=== PATIENT | female | born 1945 | race Caucasian/White ===

== ENCOUNTER 2024-10-13 09:13 | Outpatient (REF) | payer MEDICARE, OTHER, SELFPAY ==
--- OUTSIDE RECORDS SUMMARY | 2024-10-13 09:50 | XMS_ITS | Clinical Summary ---
Author Organization 175 [facility] Address [address] [place] [address] Phone Care Team Providers Care Compugraph Operator Name Role Phone Tano Gillette Primary Care Provider [phone] Allergies Active Allergy Reactions Criticality Noted Date Comments Amoxicillin-Pot Clavulanate Diarrhea 01/22/20 18 Metoprolol Other 06/07/2018 Depression worsened Nitrofurantoin Monohyd/M-Cryst Medium 04/11/2014 Other Reaction(s): Numbness, tingling or swelling of the lips, tongue or mouth Nystatin Other 09/25/2021 nightmares Rsv Vaccine, Pref, Mrna-Pf 5 Hypersensitivy reaction Sulfa (Sulfonamide Antibiotics) 09/12/2005 Other Reaction(s): Hives/Urticaria Medications busPIRone (BUSPAR) 5 mg tablet TAKE 1 TABLET BY MOUTH THREE TIMES A DAY Active mv-min/FA/vit K/lutein/zeaxan t (PRESERVISION AREDS 2 PLUS MV ORAL) Take 1 capsule by mouth 2 (two) times a day. 08/21/19 23 Active calcium carbonate (Tums Ultra) 1,000 mg (400 mg elemental calcium) chewable tablet Chew. Acti ve cholecalciferol (VITAMIN D-3) 25 mcg (1,000 unit) tablet Take 1 tablet (1,000 Units total) by mouth 1 (one) time each day. 02/20/20 22 Active simethicone (MYLICON,GAS-X) 180 mg capsule TAKE 1 CAPSULE 4 TIMES DAILY NEEDED. 03/12/20 19 Active estradioL (ESTRACE) 0.01 % (0.1 mg/gram) vaginal cream Place 1 g vaginally. 01/21/20 17 Active LORazepam (ATIVAN) 0.5 mg tablet 1 po qd prn anxiety or insomnia 05/30/20 21 Active nortriptyline (PAMELOR) 25 mg capsule TAKE 1 CAPSULE BY MOUTH EVERY NIGHT AT BEDTIME WITH 75 MG CAPSULE FOR TOTAL DOSE = 100 MG 08/10/19 24 Active nortriptyline (PAMELOR) 75 mg capsule Take 1 capsule by mouth at bedtime. 08/20/19 22 Active levothyroxine (SYNTHROID, LEVOTHROID) 112 mcg tablet TAKE 1 TABLET BY MOUTH EVERY DAY 90 tablet 3 06/27/19 25 Active amLODIPine (NORVASC) 5 mg tablet Take 0.5 tablets (2.5 mg total) by mouth. Active diclofenac (VOLTAREN) 1 % topical gel Apply 4 g topically 4 (four) times a day. 1440 g 3 09/01/19 25 Active simvastatin (ZOCOR) 20 mg tablet Take 1 tablet (20 mg total) by mouth at bedtime. at bedtime. 90 tablet 3 09/01/19 25 Active amLODIPine (NORVASC) 2.5 mg tablet Take 1 tablet (2.5 mg total) by mouth 1 (one) time each day. 90 each 3 09/01/19 25 Active pantoprazole (PROTONIX) 40 mg EC tabletIndicatio ns:Hiatal hernia with GERD without esophagitis TAKE 1 TABLET BY MOUTH 1 TIME EACH DAY. 90 tablet 1 09/29/19 25 Active pantoprazole (PROTONIX) 40 mg EC tabletIndicatio ns:Hiatal hernia with GERD without esophagitis Take 1 tablet (40 mg total) by mouth 1 (one) time each day. 30 tablet 3 07/07/19 25 025 Discontinued Active Problems Problem Noted Date Diagnosed Date Abdominal aortic atherosclerosis (CMS/HCC V24) 0 08/22/2024 Bilateral carotid artery stenosis 03/28/2024 Macular degeneration 08/20/2022 CKD (chronic kidney disease) stage 3, GFR 30-59 ml/min ([facility] V24, [facility] V28) 07/08/2022 Anxiety and depression 02/20/2022 Palpitations 02/20/2022 Thrush 02/20/2022 PVC's (premature ventricular contractions) 10/21 Dilation of thoracic aorta ([facility] V24) 022 Porokeratosis 09/19/2020 Overview (05/17/2024): Porokeratosis 09/26 forehead Primary osteoarthritis of left knee 01/10/2019 Primary osteoarthritis of right knee 01/10/2019 Esophageal reflux 01/21/2018 Panic disorder 11/04/2016 Hiatal hernia 03/21/2016 Schatzki's ring 03/21/2016 Generalized anxiety disorder 02/29/2016 Major depressive disorder, r ecurrent severe without psychotic features ([facility] V24, [facility] V28) 02/29/2016 Bunion of great toe of right foot 04/11/2014 Overview (05/17/2024): No surgery as of 2013 Osteopenia 05/07/2012 Rectocele, female 04/11/2011 Benign neoplasm of colon 08/23/2007 Overview (05/17/2024): Sessile, flat, hyperplastic polyp, hepatic flexure, biopsied but not removed completely 11/29/2001. CN + bx 10/15/2007:Hyperplastic polyp. Colonoscopy and biopsy 2012, serrated adenoma. 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 V24) 09/12/2005 Overview (05/17/2024): IMO update Hyperlipidemia 09/09/2005 Hypothyroidism 09/09/2005 Encounters Date Type Department Care Team Description 10/06/2024 Nurse Triage Adult Medicine [address] [phone] Tano Gillette PA 10/04/2024 8:50 AM EDT Office Visit Gastroenterology - [facility] [address] [facility] [address] [place] [address] Marii Mccrary PA Hiatal hernia with GERD (Primary Dx); History of colon polyps 09/07/2024 Telephone [facility] SCHEDULING [address] [place] [address] Marii Mccrary PA provider call back 09/05/2024 7:55 AM EDT - 09/05/2024 11:59 PM EDT Hospital Encounter [facility] Xray [address] [place] [address] Hiatal hernia with GERD without esophagitis Discharge Disposition: Home or Self Care 08/31/2024 10:30 AM EDT Office Visit Adult Medicine [address] [phone] Tano Gillette PA Essential hypertension, benign (Primary Dx); Bilateral carotid artery stenosis; Sensorineural hearing loss (SNHL) of both ears; Anxiety and depression; Stage 3 chronic kidney disease, unspecified whether stage 3a or 3b CKD (CMS/HCC V24, CMS/HCC V28); Dilation of thoracic aorta (CMS/HCC V24); Hypothyroidism, unspecified type; Osteopenia, unspecified location; Other hyperlipidemia; Gastroesophageal reflux disease without esophagitis; Neutropenia, unspecified type ([facility] V24) 08/23/2024 Telephone Adult Medicine [address] [phone] Tano Gillette PA orders 08/22/2024 9:00 AM EDT Consult Vascular Surgery - [facility] [address] [place] [address] Rigoberto Lundberg MD Carotid stenosis (Primary Dx); Abdominal aortic atherosclerosis (CMS/HCC V24) from Last 3 Months Immunizations Name Administration Dates Next Due Influenza Quadravalent, MDCK , 0.5ml, preservative free (Flucelvax) 6mo and older 03/12/2019 Influenza trivalent, 0.5mL ( Fluad) 65yo and older 02/25/2023,02/13/2022,02/12/2021,02/13,02/21/2018,02/22/2017,02/24/2016 ,02/18/2015 Influenza trivalent, with pr eservative (Fluzone; Afluria) 6mo and older 03/12/2014,02/15/2013,02/26/2012,03/02,03/14/2010,02/25/2009,04/14/2005 Influenza, Unspecified 02/25/2024,2017,02/22/2017,02/23,02/18/2015 Pfizer Covid-19 Bivalent, Or iginal + Ba.1 (Non-[employer] Bivalent) 04/21/2022 Pneumococcal conjugate 13 va lent (Prevnar 13, PCV13) 2mo and older 10/16/2014 Pneumococcal polysaccharide 23 valent (Pneumovax 23) 2yo and older 09/26/2013,03/23/2007 Respiratory syncytial virus (RSV), unspecified 06/23/2023 Td Tetanus diptheria (Tdvax) 7yo and older 09/12/2005 Tdap Tetanus diptheria acell ular pertussis (Boostrix; Adacel) 7yo and older 04/21/2016 Zoster Live 11/27/2009 Zoster recombinant (Shingrix ) 19yo and older 07/25/2024 Surgical History Surgery Date Site/Laterality Comments CATARACT EXTRACTION PROCEDURE: HISTORICAL CATARACT REMOVAL BLADDER SUSPENSION PROCEDURE: HISTORICAL BLADDER SUSPENSION MOLE REMOVAL PROCEDURE: HISTORICAL MOLE (REMOVAL OF); COMMENT: Dysplastic (Gildardo's) nevus LLQ abdominal wall TUBAL LIGATION PROCEDURE: HISTORICAL TUBAL LIGATION TONSILLECTOMY PROCEDURE: HISTORICAL TONSILLECTOMY COLONOSCOPY 11/29/2001 PROCEDURE: HISTORICAL COLONOSCOPY; COMMENT: sessile hyperplastic polyp hepatic flexure. COLONOSCOPY 10/15/2007 PROCEDURE: HISTORICAL COLONOSCOPY; COMMENT: sessile flat polyp hepatic flexure: Hyperplastic polyp COLONOSCOPY 12/20/2012 PROCEDURE: HISTORICAL COLONOSCOPY; COMMENT: polyp bx: serrated adenoma. OTHER SURGICAL HISTORY PROCEDURE: HISTORY OTHER; COMMENT: cystocele rectocele 2014 HYSTERECTOMY PROCEDURE: HISTORICAL HYSTERECTOMY; COMMENT: and oophor dr ceron 2016 UPPER GASTROINTESTINAL ENDOSCOPY 03/14/2016 PROCEDURE: DC UPPER GI ENDOSCOPY PERFORMED; COMMENT: [facility]; Funez; small HH; esophageal bx: microscopic inflammation consistent with GERD. COLONOSCOPY 03/14/2016 PROCEDURE: HISTORICAL COLONOSCOPY; COMMENT: [facility]; Funez; small SSA in the hepatic flexure. OTHER SURGICAL HISTORY 2013 PROCEDURE: DC COLPOPEXY VAGINAL EXTRAPERITONEAL APPROACH; COMMENT: A/P UPPER GASTROINTESTINAL ENDOSCOPY 10/11/2013 PROCEDURE: DC UPPER GI ENDOSCOPY PERFORMED; COMMENT: normal OTHER SURGICAL HISTORY 04/09/2022 PROCEDURE: UPPER GI ENDOSCOPY, REMOVE LESION; COMMENT: muslu -small hiatal hernia otherwise normal Medical History Medical History Date Comments Benign neoplasm of colon 08/23/2007 DX:Gerardo gn neoplasm of colon; COMMENT: Sessile, flat, hyperplastic polyp, hepatic flexure, biopsied but not removed completely 11/29/2001. CN + bx 10/15/2007:Hyperplastic polyp. Colonoscopy and biopsy 2012, serrated adenoma. 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/03/2006 DX:Felty's syndrome (HCC) Esophageal reflux 01/21/2018 DX:Esophageal reflux Essential hypertension, benign 06/26/2006 D X:Essential hypertension, benign Family history of melanoma 11/09/2015 DX:Fa ihsan history of melanoma; COMMENT: Family history of melanoma daughter Generalized anxiety disorder 02/29/2016 DX: Generalized anxiety disorder H/O difficult intubation 10/16/2014 DX:H/O difficult intubation; COMMENT: Ant larynx mpoor neck mobiltiy Small mouth Protruding teeth Hiatal hernia 03/21/2016 DX:Hiatal hernia History of dysplastic nevus 10/23/2006 DX:H istory of dysplastic nevus; COMMENT: Dysplastic (Gildardo's) nevus LLQ abdominal wall Hyperlipidemia 09/09/2005 DX:Hyperlipidemi a Hypothyroidism 09/09/2005 DX:Hypothyroidis m Major depressive disorder, r ecurrent severe without psychotic features (CMS/HCC V24, CMS/HCC V28) 02/29/2016 DX:Major depressive disorde r, recurrent severe without psychotic features (HCC) Osteopenia 05/07/2012 DX:Osteopenia Panic disorder 11/04/2016 DX:Panic disorde r Rectocele, female 04/11/2011 DX:Rectocele, female Neutropenia (CMS/HCC V24) 09/12/2005 DX:Clemente tropenia ([facility]); COMMENT: IMO update Charo's ring 03/21/2016 DX:Charo's ri ng Actinic keratosis, hx of DX:Acti erna keratosis, hx of Family History Medical History Relation Name Comments Breast cancer Aunt 1 Maternal 57 maternal Uterine cancer Aunt 2 50's paternal ?can cer Melanoma Daughter Survivor Other: Other Father bypass surgery times 2 Colon cancer Mother 74 dx age 74, thyr oid disorder Thyroid disease Sister 1 Thyroid disease Sister 2 Thyroid disease Sister 3 Colon cancer Uncle 60's paternal Relation Name Status Comments Aunt 1 Maternal 57 Aunt 2 50's Daughter Father bypass surgery DM Mother 74 (Age 90) colon canc er dementia Sister 1 Alive healthy/healthy /healthy htn thyroid Sister 2 Alive htn thyroid Sister 3 Alive thyroid Uncle 60's Social History Tobacco Use Types Packs/Day Years Used Date Smoking Tobacco: Former Cigarettes Q uit: 06/08/1968 Smokeless Tobacco: Never Tobacco Cessation:Counseling Given: Not Answered Alcohol Use Standard Drinks/Week Comments Yes 0 (1 standard drink = 0.6 oz pur e alcohol) Comments Unknown Sex and Gender Information Value Date Recorded Sex Assigned at Female 07/07/2024 1:52 PM EST Legal Sex Female 9:28 AM EST Gender Identity Female 07/07/2024 1:52 PM EST Sexual Orientation Straight 07/07/2024 1: 52 PM EST Obstetrics History Last Filed Vital Signs Vital Sign Reading Time Taken Comments Blood Pressure 150/96 10/04/2024 8:53 AM EDT Pulse 72 10/04/2024 8:53 AM EDT Temperature 36.1 ??C (97 ??F) 08/31/2024 10:10 AM EDT Respiratory Rate 12 08/31/2024 10:10 AM EDT Oxygen Saturation 92% 10/04/2024 8:53 AM EDT Inhaled Oxygen Concentration - - Weight 76.2 kg (168 lb) 10/04/2024 8:53 AM EDT Height 160 cm (5' 3 ) 10/04/2024 8:53 AM EDT Body Mass Index 29.76 10/04/2024 8:53 AM EDT Plan of Treatment Upcoming Encounters Date Type Department Care Team (Late st Contact Info) Description 11/15/2024 8:30 AM EDT Appointment [facility] Endoscopy [address] [place] [phone] Carli Santo MD 175 [facility] [address] [place] [address] 11/17/2024 11:00 AM EDT Ancillary Procedure [facility] [address] [facility] [address] [place] [phone] 01/03/2025 9:10 AM EDT Office Visit Gastroenterology - [facility] 175 [facility] [address] [place] [phone] Marii Mccrary PA 175 [facility] [address] [place] [address] 03/07/2025 8:45 AM EDT Office Visit Adult Medicine East - [address] [phone] Tano Gillette PA [address] [place], [place] 03/16/2025 8:00 AM EDT Appointment Radiology Department - [address] [phone] Health Maintenance Due Date Last Done Comments RSV Immunization Adult Patients (1 - 1-dose 75+ series) 10/02/2019 06/23/2023 Social Influencers of Health Screening 05/17/2022 Medicare Annual Wellness Visit 02/21/2024 02/20/2023 Falls Risk Assessment 08/23/2024 08/24/2023 Zoster Vaccines (2 of 2) 09/19/2024 07/25/2024, 06/2 07/2009 COVID-19 Vaccine (7 - Pfizer risk season) 2024 04/20/2024, 04/14/2023, 11/07/2021, Additional history exists Depression Screening 03/03/2025 03/03/2024 Hypertension/CHF/CAD Annual BMP Blood Test 08/25/2025 08/25/2024, 07/07/2023 DTaP,Tdap,and Td Vaccines (3 - Td or Tdap) 04/21/2026 04/21/2016, 09/12/2005 Colorectal Cancer Screening: Colonoscopy 04/09/2027 04/09/2022 Cholesterol Screening (Lipid Panel) 08/25/2029 08/25/2024, 07/07/2023 Osteoporosis Screening (Bone Density Screening) 05/07/2033 05/07/2023, 02/13/2021, 06/10/2017 Pneumococcal Vaccine: 50+ Years Completed 10/16/2014, 09/26/2013, 03/23/2007 RSV Immunization Patients Under 20 months Aged Out 06/23/2023 No longer eligible based on patient's age to complete this topic Influenza Vaccine Completed 02/25/2024, , 02/13/2022, Additional history exists HIB Vaccines Aged Out No longer eligi ble based on patient's age to complete this topic HPV Vaccines Aged Out No longer eligi ble based on patient's age to complete this topic Hepatitis A Vaccines Aged Out No long er eligible based on patient's age to complete this topic Hepatitis B Vaccines Aged Out No long er eligible based on patient's age to complete this topic IPV Vaccines Aged Out No longer eligi ble based on patient's age to complete this topic MMR Vaccines Aged Out No longer eligi ble based on patient's age to complete this topic Meningococcal ACWY Vaccine Aged Out N o longer eligible based on patient's age to complete this topic Meningococcal B Vaccine Aged Out No l onger eligible based on patient's age to complete this topic Varicella Vaccines Aged Out No longer eligible based on patient's age to complete this topic Procedures Procedure Name Priority Date/Time Associated Diagnosis Comments XR UGI W AIR CONTRAST Routine 09/05/2024 8:51 AM EDT Hiatal hernia with GERD without esophagitis CBC WITH AUTO DIFFERENTIAL Routine 08/25/2024 7:36 AM EDT Hypothyroidism, unspecified type Essential hypertension, benign Other hyperlipidemia LIPID PANEL WITH REFLEX TO DIRECT LDL Routine 08/25/2024 7:36 AM EDT Hypothyroidism, unspecified type Essential hypertension, benign Other hyperlipidemia COMPREHENSIVE METABOLIC PANEL Routine 08/25/2024 7:36 AM EDT Hypothyroidism, unspecified type Essential hypertension, benign Other hyperlipidemia CBC AND DIFFERENTIAL Routine 08/25/2024 7:36 AM EDT Hypothyroidism, unspecified type Essential hypertension, benign Other hyperlipidemia THYROID STIMULATING HORMONE WITH REFLEX TO FREE T4 AND FREE T3 Routine 08/25/2024 7:36 AM EDT Hypothyroidism, unspecified type Essential hypertension, benign Other hyperlipidemia DEPRESSION SCREENING Routine 03/03/2024 FALLS RISK ASSESSMENT Routine 08/24/2023 DXA BONE DENSITY STUDY 1+ SITS AXIAL SKEL Routine 05/07/2023 10:19 AM EST Chronic kidney disease, stage 3 unspecified (CMS/HCC V24, CMS/HCC V28) Anxiety disorder, unspecified Depression, unspecified Ventricular premature depolarization Thoracic aortic ectasia (CMS/HCC V24) Gastro-esophageal reflux disease without esophagitis Panic disorder (episodic paroxysmal anxiety) Family history of malignant neoplasm of other organs or systems Esophageal obstruction COLONOSCOPY Routine 04/09/2022 from Last 3 Months or Most Recently Relevant to Health Maintenance Results * XR UGI w Air Contrast (09/05/2024 8:51 AM EDT) Anatomical Region Laterality Modality Body Radiographic Ammy ging 09/05/2024 10:1 4 AM EDT Impressions 09/05/2024 10:31 AM EDT 1. Moderate esophageal dysmotility. 2. Small, sliding, axial hiatal hernia with moderate amounts of spontaneous gastroesophageal reflux visualized. 3. Multiple, small, round to oval filling defects noted along the gastric mucosa, likely representing hyperplastic polyps, however overlapping gastric erosions or ulcerations should also be considered as described above. Recommend direct visualization with endoscopy. -------- FINAL REPORT -------- Dictated By: GiulianaBaldoMalgorzata Dictated Date: 09/05/2024 10:14 ET Assigned Physician: Rufus Hinds Reviewed and Electronically Signed By: Rufus Hinds Signed Date: 09/05/2024 10:31 ET Workstation ID: [id number] Transcribed By: Self Edit Transcribed Date: 09/05/2024 10:23 ET Resident/PA/GROUND INTELLIGENCE OFFICER: Malgorzata Giordano Narrative 09/05/2024 10:31 AM EDT FINDINGS: Double contrast UGI performed. COMPARISON: No prior upper GI imaging. HISTORY: Patient is a 78-year-old female with history of worsening GERD, known hiatal hernia. ELECTROLESS PLATER radiographs: Subgrade Roller Operator AP radiograph of the abdomen obtained. Bowel gas pattern is nonobstructive. Visualized lung bases appear clear. There is moderate S-shaped scoliosis of the thoracolumbar spine. Moderate bony degenerative changes. Phleboliths are seen in the pelvis. FINDINGS: Effervescent crystals were administered orally. Thick and thin barium was then administered orally under fluoroscopic control. Esophagus: There is moderate esophageal dysmotility as demonstrated by slow transit of contrast down the esophagus and tertiary contractions visualized. Normal distensibility and mucosal pattern. There is no evidence of obstruction. There is a small, sliding, axial hiatal hernia. ?? Stomach: Normal distensibility and motility. Prompt passage of contrast from the stomach into the duodenal bulb and sweep. No gastric mass or ulceration. There are multiple, small, round to oval filling defects noted along the gastric mucosa. These are likely representing hyperplastic polyps, however several demonstrate a bull's-eye appearance which raises suspicion for possible overlapping gastric erosions or ulcerations. Visualization of proximal small bowel is within normal limits. ?? Gastroesophageal reflux: Moderate amounts of spontaneous gastroesophageal reflux visualized DAP: 554.4 uGym^2 Procedure Note Rufus Hinds MD - 09/05/2024 FINDINGS: Double contrast UGI performed. COMPARISON: No prior upper GI imaging. HISTORY: Patient is a 78-year-old female with history of worsening GERD,known hiatal hernia. ELECTROLESS PLATER radiographs: Subgrade Roller Operator AP radiograph of the abdomen obtained. Bowel gaspattern is nonobstructive. Visualized lung bases appear clear. There ismoderate S-shaped scoliosis of the thoracolumbar spine. Moderate bonydegenerative changes. Phleboliths are seen in the pelvis. FINDINGS: Effervescent crystals were administered orally. Thick and thinbarium was then administered orally under fluoroscopic control. Esophagus: There is moderate esophageal dysmotility as demonstrated byslow transit of contrast down the esophagus and tertiary contractionsvisualized. Normal distensibility and mucosal pattern. There is noevidence of obstruction. There is a small, sliding, axial hiatal hernia. Stomach: Normal distensibility and motility. Prompt passage of contrastfrom the stomach into the duodenal bulb and sweep. No gastric mass orulceration. There are multiple, small, round to oval filling defects notedalong the gastric mucosa. These are likely representing hyperplasticpolyps, however several demonstrate a bull's-eye appearance which raisessuspicion for possible overlapping gastric erosions or ulcerations.Visualization of proximal small bowel is within normal limits. Gastroesophageal reflux: Moderate amounts of spontaneous gastroesophagealreflux visualized DAP: 554.4 uGym^2 IMPRESSION: 1. Moderate esophageal dysmotility. 2. Small, sliding, axial hiatal hernia with moderate amounts ofspontaneous gastroesophageal reflux visualized. 3. Multiple, small, round to oval filling defects noted along the gastricmucosa, likely representing hyperplastic polyps, however overlappinggastric erosions or ulcerations should also be considered as describedabove. Recommend direct visualization with endoscopy. -------- FINAL REPORT -------- Dictated By: Malgorzata Giordano Dictated Date: 09/05/2024 10:14 ET Assigned Physician: Rufus Hinds Reviewed and Electronically Signed By: Rufus Hinds Signed Date: 09/05/2024 10:31 ET Workstation ID: [id number] Transcribed By: Self Edit Transcribed Date: 09/05/2024 10:23 ET Resident/PA/GROUND INTELLIGENCE OFFICER: Malgorzata Giordano Marii TIRADO IMG FLUOROSCOPY PROCEDURES Fi nal Result * Thyroid stimulating hormone with reflex to free t4 and free t3 (08/25/2024 7:36 AM EDT) TSH 3.46 0.40 - 4.00 mcIU/mL LAB CHEMISTRY METHOD 08/25/2024 11:25 AM EDT [facility] Blood Venous blood specimen / Unknown Venipuncture / Unknown 08/25/2024 7:36 AM EDT 08/25/2024 7:36 AM EDT Tano TIRADO LAB BLOOD ORDERABLES Lara l Result [facility] [address] [place] [address], [place] [phone] * (ABNORMAL) Lipid panel with reflex to direct LDL (08/25/2024 7:36 AM EDT) Cholesterol 202(H) 0 - 200 mg/dL LAB CHEMISTRY METHOD 08/25/2024 11:19 AM EDT [facility] Triglycerides 78 0 - 150 mg/dL LAB CHEMISTRY METHOD 08/25/2024 11:19 AM EDT [facility] HDL 99 >=40 mg/dL LAB CHEMISTRY METHOD 08/25/2024 11:19 AM T [facility] LDL Calculated 87 0 - 100 mg/dL LAB CHEMISTRY METHOD 08/25/2024 11:19 AM [facility] VLDL Cholesterol Roberto 15.6 mg/dL LAB CHEMISTRY METHOD 08/25/2024 11:19 AM EDT [facility] Non HDL Chol. (LDL+VLDL) 103 <145 mg/dL LAB CHEMISTRY METHOD 08/25/2024 11:19 AM [facility] Chol/HDL Ratio 2.0 0.0 - 4.4 LAB CHEMISTRY METHOD 08/25/2024 11:19 AM [facility] Blood Venous blood specimen / Unknown Venipuncture / Unknown 08/25/2024 7:36 AM EDT 08/25/2024 7:36 AM EDT Tano TIRADO LAB BLOOD ORDERABLES Lara obdulia Result [facility] [address] [place] [address], * (ABNORMAL) CBC auto differential (08/25/2024 7:36 AM EDT) WBC 3.9(L) 4.8 - 10.8 K/mcL LAB HEMETOLOGY METHOD 08/25/2024 10:39 AM EDT [facility] RBC 4.60 3.80 - 4.80 M/mcL LAB HEMETOLOGY METHOD 08/25/2024 10:39 AM EDT [facility] Hemoglobin 14.4 11.5 - 16.0 g/dL LAB HEMETOLOGY METHOD 08/25/2024 10:39 AM EDT [facility] Hematocrit 43.5 35.0 - 47.0 % LAB HEMETOLOGY METHOD 08/25/2024 10:39 AM EDT [facility] MCV 95.6 79.0 - 98.0 FL LAB HEMETOLOGY METHOD 08/25/2024 10:39 AM EDT [facility] MCH 31.6 27.0 - 32.0 pcg LAB [facility]EM[facility]OLOGY [facility] MCHC 33.1 32.0 - 37.0 g/dL LAB HEMETOLOGY METHOD 08/25/2024 10:39 AM EDT [facility] RDW 13.6 11.0 - 15.0 % LAB HEMETOLOGY METHOD 08/25/2024 10:39 AM EDT [facility] Platelets 260 130 - 400 K/mcL LAB HEMETOLOGY METHOD 08/25/2024 10:39 AM EDT [facility] MPV 11.0 7.0 - 11.0 FL LAB HEMETOLOGY METHOD 08/25/2024 10:39 AM [facility] NRBC 0.0 <1.0 % LAB HEMETOLOGY METHOD 08/25/2024 10:39 AM [facility] NRBC Absolute 0.00 <0.10 K/mcL LAB HEMETOLOGY METHOD 08/25/2024 10:39 AM [facility] Neutrophils Relative 51.5 % LAB HEMETOLOGY METHOD 08/25/2024 10:39 AM [facility] Lymphocytes Relative 29.1 % LAB HEMETOLOGY METHOD 08/25/2024 10:39 AM [facility] Monocytes Relative 13.3 % LAB HEMETOLOGY METHOD 08/25/2024 10:39 AM [facility] Eosinophils Relative 4.3 % LAB HEMETOLOGY METHOD 08/25/2024 10:39 AM [facility] Basophils Relative 1.5 % LAB HEMETOLOGY METHOD 08/25/2024 10:39 AM [facility] Immature Granulocytes Relative 0.3 % LAB HEMETOLOGY METHOD 08/25/2024 10:39 AM [facility] Neutrophils Absolute 2.02 1.50 - 7.00 K/mcL LAB HEMETOLOGY METHOD 08/25/2024 10:39 AM [facility] Lymphocytes Absolute 1.14 1.00 - 5.00 K/mcL LAB HEMETOLOGY METHOD 08/25/2024 10:39 AM [facility] Monocytes Absolute 0.52 0.20 - 1.00 K/mcL LAB HEMETOLOGY METHOD 08/25/2024 10:39 AM [facility] Eosinophils Absolute 0.17 0.00 - 0.50 K/mcL LAB HEMETOLOGY METHOD 08/25/2024 10:39 AM [facility] Basophils Absolute 0.06 0.00 - 0.20 K/mcL LAB HEMETOLOGY METHOD 08/25/2024 10:39 AM T [facility] Immature Granulocytes Absolute 0.01 0.00 - 0.03 K/mcL LAB HEMETOLOGY METHOD 08/25/2024 10:39 AM [facility] Blood Venous blood specimen / Unknown Venipuncture / Unknown 08/25/2024 7:36 AM EDT 08/25/2024 7:36 AM EDT us Tano TIRADO LAB BLOOD ORDERABLES Lara l Result [facility] [address] [place] [address], * (ABNORMAL) Comprehensive metabolic panel (08/25/2024 7:36 AM EDT) Sodium 138 133 - 145 mmol/L LAB CHEMISTRY METHOD 08/25/2024 11:17 AM [facility] Potassium 4.1 3.5 - 5.5 mmol/L LAB CHEMISTRY METHOD 08/25/2024 11:17 AM [facility] Chloride 103 96 - 110 mmol/L LAB CHEMISTRY METHOD 08/25/2024 11:17 AM [facility] CO2 30 21 - 32 mmol/L LAB CHEMISTRY METHOD 08/25/2024 11:17 AM [facility] Anion Gap 5 3 - 11 LAB CHEMISTRY METHOD 08/25/2024 11:17 AM [facility] Glucose 100 70 - 100 mg/dL LAB CHEMISTRY METHOD 08/25/2024 11:17 AM [facility] BUN 18 5 - 25 mg/dL LAB CHEMISTRY METHOD 08/25/2024 11:17 AM [facility] Creatinine 1.18(H) 0.50 - 1.10 mg/dL LAB CHEMISTRY METHOD 08/25/2024 11:17 AM [facility] eGFR 47(L) >=60 mL/min/1. 73m2 LAB CHEMISTRY METHOD 08/25/2024 11:17 AM [facility] Comment:Calculation based on the??Chronic Kidney Disease Epidemiology Collaboration (CKD-EPI) equation refit??without adjustment for race. BUN/Creatinine Ratio 15.3 LAB CHEMISTRY METHOD 08/25/2024 11:17 AM [facility] Calcium 9.5 8.5 - 10.5 mg/dL LAB CHEMISTRY METHOD 08/25/2024 11:17 AM [facility] AST (SGOT) 25 10 - 42 unit/L LAB CHEMISTRY METHOD 08/25/2024 11:17 AM [facility] ALT (SGPT) 29 10 - 60 unit/L LAB CHEMISTRY METHOD 08/25/2024 11:17 AM [facility] Alkaline Phosphatase 119 42 - 121 unit/L LAB CHEMISTRY METHOD 08/25/2024 11:17 AM [facility] Total Protein 7.4 6.0 - 8.0 g/dL LAB CHEMISTRY METHOD 08/25/2024 11:17 AM [facility] Albumin 4.0 3.2 - 5.0 g/dL LAB CHEMISTRY METHOD 08/25/2024 11:17 AM [facility] Total Bilirubin 0.6 0.0 - 1.4 mg/dL LAB CHEMISTRY METHOD 08/25/2024 11:17 AM [facility] Blood Venous blood specimen / Unknown Venipuncture / Unknown 08/25/2024 7:36 AM EDT 08/25/2024 7:36 AM EDT T[facility] T[facility] LAB BLOOD ORDERABLES Lara steiner Result [facility] [address] [place] [address], * Depression Screening (03/03/2024) Depression Screening abstracted us Historical Provider HEALTH MAINTENANCE Final Result * Falls Risk Assessment (08/24/2023) Pathologist [facility] [place] Falls Risk Assessment abstracted us Historical Provider MD HEALTH MAINTENANCE Final Result * DXA BONE DENSITY STUDY 1+ SITS AXIAL SKEL (05/07/2023 10:19 AM EST) Anatomical Region Laterality Modality Bone Densitometr y 02/20/2023 11:1 1 AM EDT Narrative 05/07/2023 5:24 PM EST BONE DENSITY ? Lumbar Spine T-score is -0.6 ?? (SD relative to 20-29 y/o adult) Z-score is +1.9 ??(SD relative to age matched peers) This is normal by criteria defined by the WHO. Left Hip T-score is -1.5 Z-score is +0.7 This is consistent with osteopenia by criteria defined by the WHO. Comparison exam(s): significant decrease in bone density of ??lumbar spine when compared to most recent bone density examination ?? Confidence level is +/-95%. Impression: Based on the World Health Organization criteria, Yuli Noble should be classified as having osteopenia. This patient has a 19% risk of major osteoporotic fracture and a 3.9% risk of hip fracture over the next 10 years. (World Health Organization Fracture Risk Assessment) The [facility] Department of Internal Medicine recommends using National Osteoporosis Foundation (NOF) guidelines in treatment decisions related to osteoporosis. NOF guidelines suggest considering treatment for postmenopausal women and men aged 50 or older presenting with the following: History of hip or vertebral fracture. T-score less than or equal to -2.5 (DXA) at the femoral neck, total hip, or spine, after appropriate evaluation to exclude secondary causes. Low bone mass (T-score between -1.0 and -2.5 at the femoral neck or spine) AND a 10-year probability of a hip fracture greater than or equal to 3% OR a 10-year probability of a major osteoporosis-related fracture greater than or equal to 20% based on the [place]-adapted WHO algorithm Please note that all treatment decisions require clinical judgment and consideration of individual patient factors, including patient preferences, co-morbidities, previous drug use, risk factors not captured in the FRAX model (e.g., frailty, falls, vitamin D deficiency, increased bone turnover, interval significant decline in bone density) and possible under- or over-estimation of fracture risk by FRAX. Procedure Note Sol Mead MD - 07/14/2023 BONE DENSITY Lumbar Spine T-score is -0.6 (SD relative to 20-29 y/o adult) Z-score is +1.9 (SD relative to age matched peers) This is normal by criteria defined by the WHO. Left Hip T-score is -1.5 Z-score is +0.7 This is consistent with osteopenia by criteria defined by the WHO. Comparison exam(s): significant decrease in bone density of lumbar spinewhen compared to most recent bone density examination Confidence level is +/-95%. Impression: Based on the World Health Organization criteria, Yuli Noble should beclassified as having osteopenia. This patient has a 19% risk of majorosteoporotic fracture and a 3.9% risk of hip fracture over the next 10years. (World Health Organization Fracture Risk Assessment) [facility] Department of Internal Medicine recommendsusing National Osteoporosis Foundation (NOF) guidelines in treatmentdecisions related to osteoporosis. NOF guidelines suggest consideringtreatment for postmenopausal women and men aged 50 or older presentingwith the following: History of hip or vertebral fracture. T-score less than or equal to -2.5 (DXA) at the femoral neck, total hip,or spine, after appropriate evaluation to exclude secondary causes. Low bone mass (T-score between -1.0 and -2.5 at the femoral neck or spine)AND a 10-year probability of a hip fracture greater than or equal to 3% ORa 10-year probability of a major osteoporosis-related fracture greaterthan or equal to 20% based on the [place]-adapted WHO algorithm Please note that all treatment decisions require clinical judgment andconsideration of individual patient factors, including patientpreferences, co-morbidities, previous drug use, risk factors not capturedin the FRAX model (e.g., frailty, falls, vitamin D deficiency, increasedbone turnover, interval significant decline in bone density) and possibleunder- or over-estimation of fracture risk by FRAX. Tano TIRADO IMJeerm[facility] DXA PROCEDURES Final Result * Colonoscopy (04/09/2022) Colonoscopy no interpretation , abstracted Anatomical Region Laterality Modality Other Historical Provider MD HEALTH MAINTENANCE Final Result from Last 3 Months or Most Recently Relevant to Health Maintenance Insurance MEDICARE [facility] Care Teams Compugraph Operator Relationship Specialty Start Date End Date Tano Gillette PA [address] [place] [address] PCP - General Internal Medicine 06/28/24
--- OUTSIDE RECORDS SUMMARY | 2024-10-13 09:50 | XMS_ITS | Encounter Summary ---
Author [facility] [place] [address] Care Team Providers Care Offal Worker Name Role Phone Tano Gillette Primary Care Provider [phone] Reason for Referral * Consultation (Routine) - Authorized Specialty Diagnoses / Procedures Referred By Contac t Referred To Contact Orthopaedics / Orthopaedic Surgery Diagnoses Primary osteoarthritis of both knees Tano Gillette PA [address] [place] [address] Phone: tel: fax: Jose Luis Bunn PA [address] [place] [address] Phone: tel: fax: Referral ID Status Reason Start Date Expiration Date Visits Requested Visits Authorized [id number] Authorized Specialty Services Required 10/06/2024 10/06/2025 1 1 Encounter Details Date Type Department Care Team (Late st Contact Info) Description 10/06/2024 Nurse Triage Adult Medicine [address] [phone] Tano Gillette PA [address] [place] [address] Social History Tobacco Use Types Packs/Day Years Used Date Smoking Tobacco: Former Cigarettes Q uit: 06/08/1968 Smokeless Tobacco: Never Alcohol Use Standard Drinks/Week Comments Yes 0 (1 standard drink = 0.6 oz pur e alcohol) Comments Unknown Sex and Gender Information Value Date Recorded Sex Assigned at Female 07/07/2024 1:52 PM EST Legal Sex Female 9:28 AM EST Gender Identity Female 07/07/2024 1:52 PM EST Sexual Orientation Straight 07/07/2024 1: 52 PM EST documented as of this encounter Progress Notes * Paulina Michel RN - 10/06/2024 4:55 PM EDT Called and advised pt of message from pcp pt is okay with seeing jose luis here fyi * CANDIDA Nieto - 10/06/2024 4:52 PM EDT Ok if I refer to jose luis jones? I put one in * Paulina Michel RN - 10/06/2024 4:44 PM EDT Called and spoke with pt. Pt c/o bilat knee pain for about 4 months now has hx of arthritis in knees pt sts years ago has injection in left knee at our physiatry dept and helped. Looking for referralfor this again for both. No recent injury no redness no swelling no warmth to touch. Pt aware out of the office today okay to wait until tomorrow documented in this encounter Plan of Treatment Upcoming Encounters Date Type Department Care Team (Late st Contact Info) Description 11/15/2024 8:30 AM EDT Appointment [facility] [address] [place] [address] Carli Santo MD [address] [facility] [address] [place] [address] 11/17/2024 11:00 AM EDT Ancillary Procedure [facility] [address] [facility] [address] [place] [address] 01/03/2025 9:10 AM EDT Office Visit Gastroenterology - [place] [address] [facility] [address] [facility] [address] [place] [address] Marii Mccrary PA [address] [facility] [address] [place] [address] 03/07/2025 8:45 AM EDT Office Visit Adult Medicine [address] [phone] Tano Gillette PA [address] [place] [address] 03/16/2025 8:00 AM EDT Appointment Radiology Department - [address] [phone] Scheduled Referrals Name Type Priority Associated Diagnoses Orde r Schedule Ambulatory referral to Orthopedic Outpatient Referral Routine Primary osteoarthritis of both knees 1 Occurrences starting 10/06/2024 until 10/06/2025 documented as of this encounter Visit Diagnoses Diagnosis Primary osteoarthritis of both knees- Primary Encounter for screening mammogram for breast cancer documented in this encounter Care Teams Offal Worker Relationship Specialty Start Date End Date Tano Glilette PA [address] [place] [address] PCP - General Internal Medicine 06/28/24 documented as of this encounter
--- OUTSIDE RECORDS SUMMARY | 2024-10-13 09:50 | XMS_ITS | Clinical Summary ---
[facility] Address [address] [place] [address] Care Team Providers Care Manager Clinic Name Role Phone Tano Gillette PA-C Primary Care Provider Allergies Active Allergy Reactions Criticality Noted Date Comments Betamethasone 12/23/2022 Nitrofurantoin 12/23/2022 Metoprolol 12/23/2022 Nystatin 12/23/2022 Sulfate 12/23/2022 Medications Medication Sig Dispensed Refills Start Date End Date Status apixaban (ELIQUIS) 5 MG TABS tablet Take 1 tablet (5 mg total) by mouth every 12 (twelve) hours. 0 Active Active Problems No known active problems Family History Medical History Relation Name Comments Pulmonary embolism Father Relation Name Status Comments Father Social History Tobacco Use Types Packs/Day Years Used Date Smoking Tobacco: Former Cigarettes Smokeless Tobacco: Never Tobacco Cessation:Counseling Given: Not Answered Alcohol Use Standard Drinks/Week Comments Not Currently 0 (1 standard drink = 0.6 oz pur e alcohol) Sex and Gender Information Value Date Recorded Sex Assigned at Not on file Gender Identity Not on file Sexual Orientation Not on file Job Start Date Occupation Industry Not on file Not on file Not on file Last Filed Vital Signs Vital Sign Reading Time Taken Comments Blood Pressure 144/81 12/23/2022 1:46 PM EDT Pulse 86 12/23/2022 1:46 PM EDT Temperature 36.6 ??C (97.8 ??F) 12/23/2022 1:46 PM ED T Respiratory Rate - - Oxygen Saturation 98% 12/23/2022 1:46 PM EDT Inhaled Oxygen Concentration - - Weight 75.8 kg (167 lb) 12/23/2022 1:46 PM EDT Height - - Body Mass Index - - Plan of Treatment Health Maintenance Due Date Last Done Comments Depression Screening 1956 Preventative Health Evaluation 1962 Shingrix-Zoster Vaccine (1 of 2) 1994 Fall Risk Assessment 2009 Osteoporosis Screening (DEXA Scan) 2009 RSV Adult > 60+ Yrs or (1 - 1-dose 75+ series) 10/02/2019 COVID-19 Vaccine ( season) 2024 11/07/2021, 03/08/2021, 07/19/2020, Additional history exists Influenza Vaccine (#1) 2024 2, 02/12/2021, 03/12/2019, Additional history exists DTap / Tdap / Td (2 - Td or Tdap) 04/21/2026 04/21/2016, 09/12/2005 Pneumococcal Vaccine Completed 10/16/2014, 09/26/2013, 03/23/2007 Hepatitis B Vaccines Aged Out No long er eligible based on patient's age to complete this topic RSV Ped < 20 months Aged Out No longe r eligible based on patient's age to complete this topic Care Teams Manager Clinic Relationship Specialty Start Date End Date Tano Gillette, ALFRED PCP - General Medical Services 11/12/22
== END 2024-10-13 09:14 | disposition home or self-care (01) ==
LOC: HO.SH 09:13
PROVIDERS: Visit Provider Physician Assistant Medical
DX: Z01.118 Encounter for examination of ears and hearing with other abnormal findings (principal); H90.3 Sensorineural hearing loss, bilateral
CPT/HCPCS: 92557

== ENCOUNTER 2024-10-27 14:46 | Outpatient (REF) | payer SELFPAY ==
--- OUTSIDE RECORDS SUMMARY | 2024-10-27 14:49 | XMS_ITS | Clinical Summary ---
Author Organization 175 [facility] Address [address] [place] [address] Phone Care Team Providers Care Oncology Pharmacist Name Role Phone Tano Gillette Primary Care Provider [phone] Allergies Active Allergy Reactions Criticality Noted Date [...] kidney disease) stage 3, GFR 30-59 ml/min ([facility] V24, [facility] V28) 07/08/2022 Anxiety and depression 02/20/2022 Palpitations 02/20/2022 Thrush 02/20/2022 PVC's (premature ventricular contractions) 10/21 Dilation of thoracic aorta ([facility] V24) 022 Porokeratosis 09/19/2020 Overview (05/17/2024): Porokeratosis 09/26 forehead Primary osteoarthritis of left knee 01/10/2019 Primary osteoarthritis of right knee 01/10/2019 Esophageal reflux 01/21/2018 Panic disorder 11/04/2016 Hiatal hernia 03/21/2016 Schatzki's ring 03/21/2016 Generalized anxiety disorder 02/29/2016 Major depressive disorder, r ecurrent severe without psychotic features ([facility] V24, [facility] V28) 02/29/2016 Bunion of great toe of right foot 04/11/2014 Overview (05/17/2024): No surgery as of 2013 Osteopenia 05/07/2012 Rectocele, female 04/11/2011 Benign neoplasm of colon 08/23/2007 Overview (05/17/2024): Sessile, flat, hyperplastic polyp, hepatic flexure, biopsied but not removed completely 11/29/2001. CN + bx 10/15/2007:Hyperplastic polyp. Colonoscopy and biopsy 2012, serrated adenoma. 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[facility] V24, [facility] V28) 03/09 Neutropenia ([facility] V24) 09/12/2005 Overview (05/17/2024): IMO update Hyperlipidemia 09/09/2005 Hypothyroidism 09/09/2005 Encounters Date Type Department Care Team Description 10/06/2024 Nurse Triage Adult Medicine [address] [phone] Tano Gillette PA 10/04/2024 8:50 AM EDT Office Visit Gastroenterology - [place] [address] [facility] [address] [place] [address] Marii Mccrary PA Hiatal hernia with GERD (Primary Dx); History of colon polyps 09/07/2024 Telephone [facility] SCHEDULING [address] [place] [address] Marii Mccrary PA provider call back 09/05/2024 7:55 AM EDT - 09/05/2024 11:59 PM EDT Hospital Encounter [facility] Xray [address] [place] [address] Hiatal hernia with GERD without esophagitis Discharge Disposition: Home or Self Care 08/31/2024 10:30 AM EDT Office Visit Adult Medicine [address] [phone] Tano Gillette PA Essential hypertension, benign (Primary Dx); Bilateral carotid artery stenosis; Sensorineural hearing loss (SNHL) of both ears; Anxiety and depression; Stage 3 chronic kidney disease, unspecified whether stage 3a or 3b CKD (CMS/HCC V24, CMS/HCC V28); Dilation of thoracic aorta (CMS/HCC V24); Hypothyroidism, unspecified type; Osteopenia, unspecified location; Other hyperlipidemia; Gastroesophageal reflux disease without esophagitis; Neutropenia, unspecified type ([facility] V24) 08/23/2024 Telephone Adult Medicine [address] [phone] Tano Gillette PA orders 08/22/2024 9:00 AM EDT Consult Vascular Surgery - [place] [address] [place] [address] Rigoberto Lundberg MD Carotid stenosis [...] Pfizer Covid-19 Bivalent, Or iginal + Ba.1 (Non-LeukoDx [employer]ark [employer] Bivalent) 04/21/2022 Pneumococcal conjugate 13 va lent [...] ceron 2016 UPPER GASTROINTESTINAL ENDOSCOPY 03/14/2016 PROCEDURE: MD UPPER GI ENDOSCOPY PERFORMED; COMMENT: [facility]; [facility]; small HH; esophageal bx: microscopic inflammation consistent with GERD. COLONOSCOPY 03/14/2016 PROCEDURE: HISTORICAL COLONOSCOPY; COMMENT: [facility]; [facility]z; small SSA in the hepatic flexure. OTHER SURGICAL HISTORY 2013 PROCEDURE: MD COLPOPEXY VAGINAL EXTRAPERITONEAL APPROACH; COMMENT: A/P UPPER GASTROINTESTINAL ENDOSCOPY 10/11/2013 PROCEDURE: MD UPPER GI ENDOSCOPY PERFORMED; COMMENT: normal OTHER [...] and biopsy 2012, serrated adenoma. 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[facility]); COMMENT: IMO update Charo's ring 03/21/2016 DX:Charo's [...] Care Team (Late st Contact Info) Description 11/02/2024 3:30 PM EDT Consult Orthopedics - [place] [id number] [place], [place] [phone] George Bunn PA [address] [place], [place] 11/15/2024 8:30 AM EDT Appointment [facility] Endoscopy [address] [place] [phone] Carli Santo MD [address] [address] 11/17/2024 11:00 AM EDT Ancillary Procedure [facility] [address] [phone] 01/03/2025 9:10 AM EDT Office Visit Gastroenterology - [place] 175 [facility] [address] [phone] Marii Mccrary PA [address] [address] 03/07/2025 8:45 AM EDT Office Visit Adult Medicine East - [address] [phone] Tano Gillette PA [address] [place], [place] 03/16/2025 8:00 AM EDT Appointment Radiology Department - [address] [phone] Health Maintenance Due Date Last Done Comments RSV Immunization Adult Patients (1 - 1-dose 75+ series) 10/02/2019 06/23/2023 Social Influencers of Health Screening 05/17/2022 Medicare Annual Wellness Visit 02/21/2024 02/20/2023 Falls Risk Assessment 08/23/2024 08/24/2023 Zoster Vaccines (2 of 2) 09/19/2024 07/25/2024, 11/07 COVID-19 Vaccine (7 - Pfizer risk 2023- season) 2024 04/20/2024, 04/14/2023, 11/07/2021, Additional history [...] Signed Date: 09/05/2024 10:31 ET Workstation ID: [id number] Transcribed By: Self Edit Transcribed Date: 09/05/2024 10:23 ET Resident/PA/HEAVY EQUIPMENT FIELD MECHANIC: Malgorzata Giordano Narrative 09/05/2024 10:31 AM EDT FINDINGS: Double contrast UGI performed. COMPARISON: No prior upper GI imaging. HISTORY: Patient is a 78-year-old female with history of worsening GERD, known hiatal hernia. STEAM SETTER radiographs: Busgirl AP radiograph of the abdomen obtained. Bowel [...] with history of worsening GERD,known hiatal hernia. STEAM SETTER radiographs: Busgirl AP radiograph of the abdomen obtained. Bowel [...] Signed Date: 09/05/2024 10:31 ET Workstation ID: [id number] Transcribed By: Self Edit Transcribed Date: 09/05/2024 10:23 ET Resident/PA/HEAVY EQUIPMENT FIELD MECHANIC: Malgorzata Giordano Marii TIRADO IMG FLUOROSCOPY PROCEDURES Fi nal Result * Thyroid stimulating hormone with reflex to free t4 and free t3 (08/25/2024 7:36 AM EDT) Pathologist [facility] TSH 3.46 0.40 - 4.00 mcIU/mL LAB CHEMISTRY METHOD 08/25/2024 11:25 AM EDT [facility] Blood Venous blood specimen / Unknown Venipuncture / Unknown 08/25/2024 7:36 AM EDT 08/25/2024 7:36 AM EDT Tano [facility] LAB BLOOD ORDERABLES Lara l Result [facility] [address] [place] [address], [place] [phone] * (ABNORMAL) Lipid panel with reflex to direct LDL (08/25/2024 7:36 AM EDT) Pathologist [facility] Cholesterol 202(H) 0 - 200 mg/dL LAB CHEMISTRY METHOD 08/25/2024 11:19 AM EDT [facility] Triglycerides 78 0 - 150 mg/dL LAB CHEMISTRY METHOD 08/25/2024 11:19 AM EDT [facility] HDL 99 >=40 mg/dL LAB CHEMISTRY METHOD 08/25/2024 11:19 AM EDT [facility] LDL Calculated 87 0 - 100 mg/dL LAB CHEMISTRY METHOD 08/25/2024 11:19 AM EDT [facility] VLDL Cholesterol Roberto 15.6 mg/dL LAB CHEMISTRY METHOD 08/25/2024 11:19 AM EDT [facility] Non HDL Chol. (LDL+VLDL) 103 <145 mg/dL LAB CHEMISTRY METHOD 08/25/2024 11:19 AM EDT [facility] Chol/HDL Ratio 2.0 0.0 - 4.4 LAB CHEMISTRY METHOD 08/25/2024 11:19 AM EDT [facility] Blood Venous blood specimen / Unknown Venipuncture / Unknown 08/25/2024 7:36 AM EDT 08/25/2024 7:36 AM EDT Tano TIRADO LAB BLOOD ORDERABLES Lara obdulia Result [facility] [address] [place] [address], * (ABNORMAL) CBC auto differential (08/25/2024 7:36 AM EDT) WBC 3.9(L) 4.8 - 10.8 K/mcL LAB HEMETOLOGY METHOD 08/25/2024 10:39 AM EDT [facility] RBC 4.60 3.80 - 4.80 M/mcL LAB HEMETOLOGY METHOD 08/25/2024 10:[facility] Hemoglobin 14.4 11.5 - 16.0 g/dL LAB HEMETOLOGY METHOD 08/25/2024 10:39 [facility] Hematocrit 43.5 35.0 - 47.0 % LAB HEMETOLOGY METHOD 08/25/2024 10:39 [facility] MCV 95.6 79.0 - 98.0 FL LAB HEMETOLOGY METHOD 08/25/2024 10:39 [facility] MCH 31.6 27.0 - 32.0 pcg LAB HEMETOLOGY METHOD 08/25/2024 10:39 AM EDT [facility] MCHC 33.1 32.0 - 37.0 g/dL LAB HEMETOLOGY METHOD 08/25/2024 10:39 AM [facility] RDW 13.6 11.0 - 15.0 % LAB HEMETOLOGY METHOD 08/25/2024 10:39 AM [facility] Platelets 260 130 - 400 K/mcL LAB HEMETOLOGY METHOD 08/25/2024 10:39 AM [facility] MPV 11.0 7.0 - 11.0 FL LAB HEMETOLOGY METHOD 08/25/2024 10:39 AM [facility] NRBC 0.0 <1.0 % LAB HEMETOLOGY METHOD 08/25/2024 10:39 AM [facility] NRBC Absolute 0.00 <0.10 K/mcL LAB HEMETOLOGY METHOD 08/25/2024 10:39 AM [facility] Neutrophils Relative 51.5 % LAB HEMETOLOGY METHOD 08/25/2024 10:39 AM [facility] Lymphocytes Relative 29.1 % LAB HEMETOLOGY METHOD 08/25/2024 10:39 AM [facility] Monocytes Relative 13.3 % LAB HEMETOLOGY METHOD 08/25/2024 10:39 AM [facility] Eosinophils Relative 4.3 % LAB HEMETOLOGY METHOD 08/25/2024 10:39 AM [facility] Basophils Relative 1.5 % LAB HEMETOLOGY METHOD 08/25/2024 10:39 AM [facility] Immature Granulocytes Relative 0.3 % LAB HEMETOLOGY METHOD 08/25/2024 10:39 AM [facility] Neutrophils Absolute 2.02 1.50 - 7.00 K/mcL LAB HEMETOLOGY METHOD 08/25/2024 10:39 AM [facility] Lymphocytes Absolute 1.14 1.00 - 5.00 K/mcL LAB HEMETOLOGY METHOD 08/25/2024 10:39 AM [facility] Monocytes Absolute 0.52 0.20 - 1.00 K/mcL LAB HEMETOLOGY METHOD 08/25/2024 10:39 AM EDT [facility] Eosinophils Absolute 0.17 0.00 - 0.50 K/[facility] LAB HEMETOLOGY METHOD 08/25/2024 10:39 AM EDT [facility] Basophils Absolute 0.06 0.00 - 0.20 K/[facility] LAB HEMETOLOGY METHOD 08/25/2024 10:39 AM EDT [facility] Immature Granulocytes Absolute 0.01 0.00 - 0.03 K/[facility] LAB HEMETOLOGY METHOD 08/25/2024 10:39 AM EDT [facility] Blood Venous blood specimen / Unknown Venipuncture / Unknown 08/25/2024 7:36 AM EDT 08/25/2024 7:36 AM EDT us Tano TIRADO LAB BLOOD ORDERABLES Lara steiner Result [facility] [address] [place] [address], * (ABNORMAL) Comprehensive metabolic panel (08/25/2024 7:36 AM EDT) Sodium 138 133 - 145 mmol/L LAB CHEMISTRY METHOD 08/25/2024 11:17 AM [facility] Potassium 4.1 3.5 - 5.5 mmol/L LAB CHEMISTRY METHOD 08/25/2024 11:17 AM [facility] Chloride 103 96 - 110 mmol/L LAB CHEMISTRY METHOD 08/25/2024 11:17 AM [facility] CO2 30 21 - 32 mmol/L LAB CHEMISTRY METHOD 08/25/2024 11:17 AM [facility] Anion Gap 5 3 - 11 LAB CHEMISTRY METHOD 08/25/2024 11:17 AM [facility] Glucose 100 70 - 100 mg/dL LAB CHEMISTRY METHOD 08/25/2024 11:17 AM [facility] BUN 18 5 - 25 mg/dL LAB CHEMISTRY METHOD 08/25/2024 11:17 AM [facility] Creatinine 1.18(H) 0.50 - 1.10 mg/dL LAB CHEMISTRY METHOD 08/25/2024 11:17 AM [facility] eGFR 47(L) >=60 mL/min/1. 73m2 LAB CHEMISTRY METHOD 08/25/2024 11:17 AM [facility] Comment:Calculation based on the??Chronic Kidney Disease Epidemiology Collaboration (CKD-EPI) equation refit??without adjustment for race. BUN/Creatinine Ratio 15.3 LAB CHEMISTRY METHOD 08/25/2024 11:17 AM [facility] Calcium 9.5 8.5 - 10.5 mg/dL LAB CHEMISTRY METHOD 08/25/2024 11:17 AM [facility] AST (SGOT) 25 10 - 42 unit/L LAB CHEMISTRY METHOD 08/25/2024 11:17 AM [facility] ALT (SGPT) 29 10 - 60 unit/L LAB CHEMISTRY METHOD 08/25/2024 11:17 AM [facility] Alkaline Phosphatase 119 42 - 121 unit/L LAB CHEMISTRY METHOD 08/25/2024 11:17 AM [facility] Total Protein 7.4 6.0 - 8.0 g/dL LAB CHEMISTRY METHOD 08/25/2024 11:17 AM [facility] Albumin 4.0 3.2 - 5.0 g/dL LAB CHEMISTRY METHOD 08/25/2024 11:17 AM [facility] Total Bilirubin 0.6 0.0 - 1.4 mg/dL LAB CHEMISTRY METHOD 08/25/2024 11:17 AM [facility] Blood Venous blood specimen / Unknown Venipuncture / Unknown 08/25/2024 7:36 AM EDT 08/25/2024 7:36 AM EDT Tano TIRADO LAB BLOOD ORDERABLES Lara l Result [facility] [address] [place] [address], [place] [phone] * Depression Screening (03/03/2024) Depression Screening abstracted us Historical Provider MD HEALTH MAINTENANCE Final Result * Falls Risk Assessment (08/24/2023) Falls Risk Assessment abstracted Historical Provider MD HEALTH MAINTENANCE Final Result [...] (World Health Organization Fracture Risk Assessment) [facility] Department of Internal Medicine recommends [...] (World Health Organization Fracture Risk Assessment) [facility] Department of Internal Medicine recommendsusing [...] of fracture risk by FRAX. Tano TIRADO IM DXA PROCEDURES Final Result * Colonoscopy (04/09/2022) Colonoscopy no interpretation , abstracted Anatomical Region Laterality Modality Other Historical Provider HEALTH MAINTENANCE Final Result from Last 3 Months or Most Recently Relevant to Health Maintenance Insurance MEDICARE [facility] Care Teams Oncology Pharmacist Relationship Specialty Start Date End Date Tano Gillette PA [address] [place] [address] PCP - General Internal Medicine 06/28/24
== END 2024-10-27 14:47 | disposition home or self-care (01) ==
LOC: HO.HAP 14:46
PROVIDERS: Visit Provider Internal Medicine
DX: Z13.89 Encounter for screening for other disorder (principal)

== ENCOUNTER 2024-11-04 13:09 | Outpatient (REF) | payer SELFPAY | END 2024-11-04 13:10 | disposition home or self-care (01) | LOC: HO.HAP 13:09 | PROVIDERS: Visit Provider Physician Assistant Medical | DX: Z13.89 Encounter for screening for other disorder (principal) ==

== ENCOUNTER 2024-11-18 12:49 | Outpatient (REF) | payer SELFPAY | END 2024-11-18 12:50 | disposition home or self-care (01) | LOC: HO.HAP 12:49 | PROVIDERS: PCP Physician Assistant Medical; Visit Provider Physician Assistant Medical | DX: Z13.89 Encounter for screening for other disorder (principal) ==